=== PATIENT | male | born 1980 | race Two or more races ===

== ENCOUNTER 2019-10-31 15:50 | Emergency (ER) | payer MEDICAID, OTHER ==
[~2019-10-31] VITALS: Ht 172.7 cm; Wt 99.8 kg
[2019-10-31] MEDS ORDERED: MORPHINE SULFATE 4 MG/ML SYR/VIAL IV ONE (16:15)
[2019-10-31] MEDS ORDERED: ONDANSETRON HCL 4 MG/2 ML VIAL IV ONE (16:15)
[2019-10-31] MEDS ORDERED: TETANUS-DIPTH-ACEL PERTUSSIS 0.5ML SYR Tdap IM ONE (17:00)
[2019-10-31] MEDS ORDERED: cefTRIAXone 1GM/50ML D5W 50 ML IV ONE (17:00)
[2019-10-31 17:24] LABS: Basophils # (auto) 0 10 ^3/uL (0-0.2); Basophils % (auto) 0.4 % (0.0-2.0); Eosinophils # (auto) 0 10 ^3/uL (0-0.8); Eosinophils % (auto) 0.4 % (0.0-7.0); Hemoglobin 16.4 g/dL (13.5-17.5); Lymphocytes # (auto) 1.4 10 ^3/uL (0.4-5.4); Lymphocytes % (auto) 11.9 % (10.0-50.0); Mean Corpuscular Hemoglobin 31.6 pg (28.0-32.0); Mean Corpuscular Hgb Conc. 33.4 g/dL (32.0-36.0); Mean Corpuscular Volume 94.6 fL (80.0-100.0); Monocytes # (auto) 0.8 10 ^3/uL (0-1.3); Monocytes % (auto) 6.8 % (0.0-12.0); Neutrophils # (auto) 9.5 10 ^3/uL (1.6-8.6); Neutrophils % (auto) 80.5 % (37.0-80.0); Nucleated Red Blood Cells % 0.3 %; Platelet Count (auto) 255 10^3/uL (140-450); Red Blood Cells 5.18 10^6/uL (4.5-5.90); White Blood Cell 11.8 10^3/uL (4.4-10.8)
[2019-10-31] MEDS ORDERED: LIDOCAINE 1% HCL (LOCAL ANESTH.) INJ 20ML MDV ID ONE (17:45)
[2019-10-31 18:01] LABS: INR 0.96 (0.9-1.15); Partial Thromboplastin Time 21.7 sec (23.64-32.05)
[2019-10-31 18:06] LABS: Albumin 3.6 g/dL (3.4-5.0); Calcium 8.8 mg/dL (8.5-10.1); Potassium 3.5 mmol/L (3.5-5.1)
[2019-10-31 18:09] LABS: BUN/Creatinine Ratio 8.1; Bilirubin, Total 0.4 mg/dL (0.2-1.0); Total Protein 7.6 g/dL (6.4-8.2)
[2019-10-31] MEDS ORDERED: SILVER SULFADIAZINE 1 % TOPICAL CREAM 50GM TOP ONE (19:45)
[2019-10-31] MEDS ORDERED: BACITRACIN TOP OINT 1 UD PKG TOP ONE (19:45)
[2019-10-31 21:29] LABS: Urine Bacteria NONE SEEN /hpf (None Seen); Urine Blood Negative /uL (Negative); Urine Mucus FEW (None Seen); Urine Specific Gravity 1.021 (1.001-1.035); Urine WBC 4 /hpf (0 - 3)
[2019-10-31 21:36] LABS: Amphetamine Screen, Urine POSITIVE (NEGATIVE); Barbiturate Scree,Urine NEGATIVE (NEGATIVE); Benzodiazephine Screen, Urine NEGATIVE (NEGATIVE); Cannabinoid Screen, Urine POSITIVE (NEGATIVE); Opiate Scree,Urine POSITIVE (NEGATIVE); Phencyclidine Screen, Urine NEGATIVE (NEGATIVE)
[2019-10-31 21:44] LABS: Cocaine Screen, Urine NEGATIVE (NEGATIVE)
[2019-10-31 23:00] VITALS: BP 123/88
== END 2019-10-31 23:22 | disposition home or self-care (01) ==
LOC: ER 15:50
DX: S01.81XA Laceration without foreign body of other part of head, initial encounter (principal); T22.211A Burn of second degree of right forearm, initial encounter; S80.12XA Contusion of left lower leg, initial encounter; S60.212A Contusion of left wrist, initial encounter; N39.0 Urinary tract infection, site not specified; F15.10 Other stimulant abuse, uncomplicated; F11.90 Opioid use, unspecified, uncomplicated; F12.10 Cannabis abuse, uncomplicated; N20.0 Calculus of kidney; R16.0 Hepatomegaly, not elsewhere classified; V86.56XA Driver of dirt bike or motor/cross bike injured in nontraffic accident, initial encounter; Y93.89 Activity, other specified; Y92.410 Unspecified street and highway as the place of occurrence of the external cause; Y99.8 Other external cause status
CPT/HCPCS: 12013; 16020; 36415; 70450; 70486; 71250; 72125; 73090; 73110; 73130; 73590; 74176; 80053; 80307; 80320; 81001; 85025; 85610; 85730; 90471; 90715; 96365; 96375; 99285; J0696; J2001; J2270; J2405; 12002

== ENCOUNTER 2021-08-05 13:26 | Emergency (ER) | payer MEDICAID ==
[~2021-08-05] VITALS: Ht 172.7 cm; Wt 107.5 kg
[2021-08-05] MEDS ORDERED: TETANUS-DIPTH-ACEL PERTUSSIS 0.5ML SYR Tdap IM ONE (14:30)
[2021-08-05 14:36] VITALS: BP 112/75
== END 2021-08-05 14:43 | disposition home or self-care (01) ==
LOC: ER 13:26
DX: S91.332A Puncture wound without foreign body, left foot, initial encounter (principal); F12.10 Cannabis abuse, uncomplicated; W22.8XXA Striking against or struck by other objects, initial encounter; Y93.89 Activity, other specified; Y92.89 Other specified places as the place of occurrence of the external cause; Y99.8 Other external cause status
CPT/HCPCS: 90471; 90715